=== PATIENT | male | born 1985 ===

== ENCOUNTER 2018-11-24 09:26 | Emergency (ER) | payer OTHER ==
[~2018-11-24] VITALS: Ht 185.4 cm; Wt 98.5 kg
[2018-11-24 09:41] VITALS: BP 128/84
[2018-11-24] MEDS ORDERED: KETOROLAC TROMETH 60MG/2ML VIAL IM ONE (11:00)
== END 2018-11-24 11:38 | disposition home or self-care (01) ==
LOC: ER 09:36
DX: S40.011A Contusion of right shoulder, initial encounter (principal); V89.2XXA Person injured in unspecified motor-vehicle accident, traffic, initial encounter; Y93.84 Activity, sleeping; Y92.89 Other specified places as the place of occurrence of the external cause; Y99.8 Other external cause status
CPT/HCPCS: 73030; 96372; 99283; J1885

== ENCOUNTER 2021-09-13 07:31 | Emergency (ER) | payer MEDICAID, OTHER ==
[~2021-09-13] VITALS: Ht 188 cm; Wt 92.1 kg
[2021-09-13 07:47] VITALS: BP 131/98
== END 2021-09-13 08:23 | disposition home or self-care (01) ==
LOC: ER 07:31
DX: S91.002A Unspecified open wound, left ankle, initial encounter (principal); Z48.00 Encounter for change or removal of nonsurgical wound dressing; X58.XXXA Exposure to other specified factors, initial encounter; Y93.89 Activity, other specified; Y92.89 Other specified places as the place of occurrence of the external cause; Y99.8 Other external cause status